=== PATIENT | female | born 1990 | race Caucasian/White ===

== ENCOUNTER 2016-08-24 12:47 | Emergency (ER) | payer BC, OTHER ==
[~2016-08-24] VITALS: Ht 170.2 cm; Wt 76.2 kg
[~2016-08-24 12:47] MED LIST: ANT25HP PO
[2016-08-24 12:58] VITALS: TEMP 36.6; Ht 170.2 cm; Wt 76.2 kg
[2016-08-24] MEDS ORDERED: IBUP-1050 PO (13:23)
[2016-08-24] MEDS ORDERED: PSEU30TA20 PO (13:23)
[2016-08-24] MEDS ORDERED: ACET-1256 PO (13:23)
[2016-08-24] MEDS ORDERED: OXYMETAZOLINE HCL 0.05% NA SPR 15 ML BTL ONE (13:33)
--- NOTE | 2016-08-24 14:27 | EMERGENCY ROOM VISIT NOTE ---
ED Visit Note First contact with patient: 13:26 CHIEF COMPLAINT: Nosebleed HISTORY OF PRESENT ILLNESS: This patient developed sudden onset of a nosebleed which started at 12 noon today.. The bleeding has not stopped with pressure. The patient states that she has had cold symptoms recently and has been blowing her nose a lot. The patient states that appears to be bleeding out of her nostrils but the left much greater than the right. The patient denies any trauma to the nose. The patient denies any prior episodes of nosebleeds. she is not on any blood thinners REVIEW OF SYSTEMS: 6 system review was performed and was negative unless stated otherwise in history of present illness. PMH: The patient is healthy; wisdom teeth removal, anterior cruciate ligament repair SOCIAL HISTORY: Patient lives with her . The patient denies any tobacco use but admits to occasional alcohol use. PHYSICAL EXAM: Vital Signs: Were reviewed Reviewed Nurse's notes. GEN.: 26-year -old white female appears in no acute distress. She has a nasal clamp in place. MENTAL Status The patient is alert, oriented, coherent, and cooperative. NOSE: The nasal clamp was removed. There was a large amount of clotted blood within the left nostril and a small amount of blood within the right nostril. EMERGENCY DEPARTMENT COURSE: Using saline and a cotton swab most of this was removed. I cannot visualize any area of specific active bleeding. Afrin spray was placed in both nostrils. The patient was observed for 30 minutes and there was no recurrent bleeding. The patient was discharged home in stable condition. DIAGNOSIS: Epistaxis DISCHARGE INSTRUCTIONS & TREATMENT: Firm pressure on the nose for 15 minutes if bleeding recurs. May also try the Afrin 1 spray into the affected nostril every 6 hours if needed. If bleeding persists, return to ER. Do not blow the nose for the next 48 hours.. Problem List Medical Problems: (1) Abdominal pain Status: Resolved (2) Abdominal pain Status: Resolved (3) Ovarian cyst, right Status: Resolved Surgical Problems: (1) S/P ACL reconstruction Status: Resolved Current/Historical Medications Scheduled PRN Acetaminophen (Tylenol), 1,000 MG PO UD PRN for Fever Ibuprofen (Advil), 400 MG PO UD PRN for Headache or Pain Pseudoephedrine (Sudafed), 60 MG PO Q12 PRN for cold symptoms Allergies Coded Allergies: Cephalexin (Verified Allergy, Unknown, ., 08/24/16) Clindamycin (Verified Allergy, Unknown, ., 08/24/16) Vital Signs Date Time Temp Pulse Resp B/P Pulse Ox O2 Delivery O2 Flow Rate FiO2 08/24/16 12:58 36.6 90 18 117/76 98 Room Air Departure Information Referrals Irma Barone MD (PCP) Patient Instructions [facility]
[2016-08-24 14:45] VITALS: BP 112/71; PULSE 74; O2SAT 100
== END 2016-08-24 14:46 | disposition home or self-care (01) ==
LOC: C.EDB 12:49 → C.EDD 14:46
DX: R04.0 Epistaxis (principal)

== ENCOUNTER → 2016-08-28 | Outpatient (CLI) | payer BC, OTHER ==
[~2016-08-28] MED LIST changes: +ACET-1256 PO; -ANT25HP PO; +IBUP-1050 PO; +PSEU30TA20 PO
--- NOTE | 2016-08-28 14:52 | EEG Procedure Note ---
EEG Procedure Note Date of Service Aug 28, 2016. Start / End Times Start Time: 8:16 AM End Time: 8:37 AM Referring Physician Irma Cobos MD History This is a 26-year-old female with an episode of syncope. EEG for further evaluation of possible seizure etiology. No home medications reported. Home Medication List Scheduled PRN Acetaminophen (Tylenol), 1,000 MG PO UD PRN for Fever Ibuprofen (Advil), 400 MG PO UD PRN for Headache or Pain Pseudoephedrine (Sudafed), 60 MG PO Q12 PRN for cold symptoms Description This is a 21 electrode EEG with a single channel dedicated to limited EKG. The electrodes were placed in accordance with the International 10-20 system. At the start of the recording the patient was in an awake state. Background was well organized and composed of symmetric mixed alpha and beta frequencies. There was a symmetric well-formed moderate amplitude 9-10 Hz posterior dominant rhythm that was reactive to eye opening and closure. Hyperventilation with good effort produced no abnormalities. Intermittent photic stimulation at various frequencies produced no abnormalities. There was no stage changes or sleep transients. Interpretation This is a normal awake only routine EEG. There was no electrographic seizures or epileptiform discharges. Clinical Correlation A normal EEG does not rule out epilepsy if there is a strong clinical suspicion.
== END | disposition home or self-care (01) ==
LOC: C.NEUR 14:00
PROVIDERS: ATTEND Family Medicine
DX: R55 Syncope and collapse (principal)

== ENCOUNTER → 2016-10-03 | Day surgery (SDC) | payer BC, OTHER ==
[~2016-10-03] VITALS: Ht 170.2 cm; Wt 75.0 kg
[2016-10-03 10:31] VITALS: BP 119/68; PULSE 83; TEMP 36.6; O2SAT 100; Ht 170.2 cm; Wt 75.0 kg
--- NOTE | 2016-10-03 11:40 | History & Physical Bridge Note ---
H&P Re-Evaluation Bridge Note: I have examined the patient, reviewed the History & Physical and in the interval since the performance of the History & Physical I have noted the following changes of clinical significance: No additional episodes of syncope. Recently diagnosed with migraine headaches.
== END | disposition home or self-care (01) ==
LOC: C.CATH 09:35
PROVIDERS: ATTEND Internal Medicine Clinical Cardiac Electrophysiology
DX: R55 Syncope and collapse (principal)

== ENCOUNTER → 2016-12-06 | Outpatient (CLI) | payer BC, OTHER ==
[2016-12-06 16:42] LABS: BASO % 0.4 %; BASO ABS # 0.03 K/uL (0-0.2); COMPLETE YES; EOS % 1.3 %; HEMATOCRIT 44.3 % (37-47); IG% 0.1 %; LYMPH % 37.8 %; LYMPH ABS # 2.91 K/uL (1.2-3.4); MEAN CELL VOLUME 90.4 fL (80-100); MEAN CORPUSCULAR HEMOGLOBIN 29.2 pg (25-34); MEAN CORPUSCULAR HGB CONC 32.3 g/dl (32-36); MEAN PLATELET VOLUME 10.6 fL (7.4-10.4); MONO % 7.7 %; NEUT % 52.7 %; PLATELET COUNT 258 K/uL (130-400)
[2016-12-06 17:00] LABS: PARTIAL THROMBOPLASTIN RATIO 1.2; PROTHROMBIN TIME (PATIENT) 10.7 SECONDS (9.0-12.0)
[2016-12-06 17:34] LABS: POTASSIUM 3.7 mmol/L (3.5-5.1)
== END | disposition home or self-care (01) ==
LOC: C.LABBC 12:22
DX: Z01.818 Encounter for other preprocedural examination (principal)

== ENCOUNTER → 2016-12-20 | Day surgery (SDC) | payer BC, OTHER ==
[2016-12-19 10:12] VITALS: Ht 170.2 cm; Wt 77.3 kg
[~2016-12-20] VITALS: Ht 170.2 cm; Wt 77.3 kg
[~2016-12-20] MED LIST changes: -ACET-1256 PO; +ACETAMINOPHEN/HYDROCODONE ELIX 15 ML/CUP UDP ONE; +ATROPINE SULFATE 0.1 MG/ML 5ML SYR IV PRN; +BACITRACIN/POLYMYXIN B OINT 15 GM TUBE EXT ONE; +DEXAMETHASONE SOD INJ 4 MG/ML VIAL ONE; +EpHEDrine SULFATE INJ 50 MG/ML AMP IV PRN; +EpHEDrine SULFATE INJ 50 MG/ML AMP ONE; +FENTANYL CITRATE INJ 50 MCG/1 ML 2 ML VIAL IV PRN; +FENTANYL CITRATE INJ 50 MCG/1 ML 2 ML VIAL ONE; +FLUMAZENIL 0.1 MG/1 ML 10 ML VIAL IV PRN; +GLYCOPYRROLATE INJ 0.2 MG/ML VIAL ONE; +HYDROCODONE/APAP 2.5MG/108MG ELIX 5 ML UDP PO PRN; -IBUP-1050 PO; +KETAMINE HCL INJ 50 MG/ML 10 ML VIAL ONE; +LABETALOL HCL IV 5 MG/ML 20ML IV PRN; +LACTATED RINGER'S 1000ML 1,000 ML IV SCH; +LIDOCAINE 2% JELLY 5 ML TUBE EXT ONE; +LIDOCAINE 3.5% OPH GEL PER APPLICATION CHARGE ONE; +LIDOCAINE HCL 2% 2 ML VIAL (20MG/ML) ONE; +MIDAZOLAM HCL 1 MG/ML 2ML VIAL ONE; +NALOXONE HCL 0.4 MG/1 ML VIAL/CARP IV PRN; +NEOSTIGMINE METHYLSULFATE 5 MG/5 ML SYR ONE; +ONDANSETRON INJ 2 MG/ML 2 ML VIAL IV PRN; +ONDANSETRON INJ 2 MG/ML 2 ML VIAL ONE; +PHENYLEPHRINE HCL INJ 10 MG/ML VIAL ONE; +PROMETHAZINE HCL INJ 12.5 MG in SODIUM CHLORIDE 0.9% 50ML 50 ML IV PRN; +PROPOFOL IV EMULSION 10 MG/ML 20 ML VIAL IV ONE; -PSEU30TA20 PO; +ROCURONIUM BROMIDE 10 MG/ML 5 ML VIAL ONE; +SUCCINYLCHOLINE CHLORIDE 20 MG/ML 10 ML VIAL IV ONE
--- NOTE | 2016-12-20 09:18 | History & Physical Bridge - [place] ---
H&P Re-Evaluation Bridge Note: I have examined the patient, reviewed the History & Physical and in the interval since the performance of the History & Physical I have noted the following changes of clinical significance: No changes noted
--- NOTE | 2016-12-20 10:38 | [facility] Operative Report ---
Operative Report Operative Date Dec 20, 2016. Pre-Operative Diagnosis Chronic Tonsillitis Post-Operative Diagnosis Same Procedure(s) Performed Tonsillectomy Surgeon Dr Rasheed Civil Technician Surgeon(s) None Estimated Blood Loss 5ML Findings NO ADENOIDS; 2+ CRYPTIC TONSILS WITH LEFT TONSILLITH Specimens A: Right Tonsil B: Left Tonsil I attest to the content of the Intraoperative Record and any orders documented therein. Any exceptions are noted below.
--- NOTE | 2016-12-20 10:39 | Discharge Instructions ---
Discharge Instructions Date of Service Dec 20, 2016. Admission Reason for Admission: Chronic Tonsillitis Discharge Discharge Diagnosis / Problem: SAME Discharge Goals Goal(s): Therapeutic intervention Activity Recommendations Activity Limitations: as noted below LIGHT ACTIVITY FOR 2WEEKS; SOFT DIET FOR 2WEEKS; NO DRIVING WHILE ON LORTAB . Current Hospital Diet Patient's current hospital diet: Full Liquid Diet Discharge Diet Recommended Diet: Full Liquid Diet Diet Texture: Mechanical Soft (ground) Procedures Procedures Performed: Tonsillectomy Pending Studies Studies pending at discharge: no Medical Emergencies . Who to Call and When: Medical Emergencies: If at any time you feel your situation is an emergency, please call 911 immediately. . Non-Emergent Contact Non-Emergency issues call your: Surgeon . . "Provider Documentation" section prepared by Kai Rasheed. . VTE Core Measure Inpt VTE Proph given/why not?: SCD's
--- NOTE | 2016-12-20 10:57 | OPERATIVE REPORT ---
DATE OF OPERATION: 12/20/2016 PREOPERATIVE DIAGNOSIS: Chronic tonsillitis. POSTOPERATIVE DIAGNOSIS: Chronic tonsillitis. PROCEDURE: Bilateral tonsillectomy. SURGEON: Dr. Rasheed. ANESTHESIA: General endotracheal. ESTIMATED BLOOD LOSS: 5 mL FINDINGS: 1. Normal palate. 2. No adenoid tissue. 3. 2+ cryptic tonsils with evidence of tonsilliths on the left hand side. SPECIMENS: Right and left tonsil sent separately for permanent pathologic assessment. COMPLICATIONS: None. INDICATIONS FOR THE PROCEDURE: The patient is a 26-year-old female with the above-mentioned history, who presents for the above-mentioned procedure on an outpatient elective basis. DETAILS OF PROCEDURE: After informed consent had been obtained from the patient, the patient was wheeled to the operating room and placed on the operating room table in supine position. Monitors were placed after induction of general endotracheal anesthesia, the table was turned 90 degrees, and the patient's head and neck were gently extended. Antibiotic ointment was applied to the lips and a mouth gag was carefully inserted, opened, stabilized on a roll of towels. The palate was inspected, this was found to be normal. A catheter was then inserted through the right nasal cavity and this was used to elevate the soft palate and uvula. Laryngeal mirror was used to inspect the nasopharynx and the intraoperative findings were of no evidence of adenoid tissue. An Allis clamp was then used to grasp the right tonsil superior pole and Bovie electrocautery was used to remove the tonsil in the capsular plane with care to preserve the underlying mucosa and musculature of the anterior and posterior tonsillar pillars. The left tonsil was then removed in a similar fashion. Intraoperative findings were of 2+ tonsils bilaterally with evidence of tonsilliths on the left hand side. The tonsils were sent separately for permanent pathologic assessment. The mouth gag was then released for 1 minute. This was reopened and hemostasis was confirmed. 2% lidocaine jelly was placed in the bilateral tonsillar fossae for added anesthetic effect. This marked the end of the case. The patient tolerated the procedure well, there were no apparent complications. The patient was extubated and transferred to recovery room in stable condition. I attest to the content of the Intraoperative Record and any orders documented therein. Any exception s are noted below.
[2016-12-20 11:35] VITALS: TEMP 36.6
[2016-12-20 12:12] VITALS: BP 113/74; PULSE 87; O2SAT 99
--- NOTE | 2016-12-20 12:14 | Anesthesia Progress Nt - [facility] ---
Anesthesia Post Op Note Date & Time Dec 20, 2016 at 12:13 Vital Signs Pain Intensity: 4 Vital Signs Past 12 Hours Date Time Temp Pulse Resp B/P (MAP) Pulse Ox O2 Delivery O2 Flow Rate FiO2 12/20/16 11:35 36.6 73 18 117/77 (90) 100 Room Air 12/20/16 11:28 81 14 100 12/20/16 11:28 80 14 12/20/16 11:27 126/75 12/20/16 11:23 76 13 100 12/20/16 11:23 77 13 12/20/16 11:22 123/80 12/20/16 11:18 83 14 12/20/16 11:18 82 14 100 12/20/16 11:17 128/79 12/20/16 11:16 36.7 100 Room Air 12/20/16 11:13 95 15 100 12/20/16 11:13 97 15 12/20/16 11:12 127/78 12/20/16 11:12 127/78 12/20/16 11:10 90 10 100 12/20/16 11:10 89 10 12/20/16 11:10 89 10 12/20/16 11:10 90 10 100 12/20/16 11:07 143/73 12/20/16 11:07 143/73 12/20/16 11:05 87 6 12/20/16 11:05 86 6 100 12/20/16 11:05 87 6 12/20/16 11:05 86 6 100 12/20/16 11:02 134/74 12/20/16 11:02 134/74 12/20/16 11:00 133 17 12/20/16 11:00 133 17 100 12/20/16 11:00 133 17 12/20/16 11:00 133 17 100 12/20/16 10:57 119/65 12/20/16 10:57 119/65 12/20/16 10:55 75 12 96 12/20/16 10:55 74 12 12/20/16 10:55 74 12 12/20/16 10:55 75 12 96 12/20/16 10:52 131/70 12/20/16 10:52 131/70 12/20/16 10:50 36.5 100 12 131/70 100 Humidified Oxygen 6 Mask 12/20/16 09:12 36.5 83 18 131/77 (95) 100 Room Air Notes Mental Status: alert / awake / arousable, participated in evaluation Pt Amnestic to Procedure: Yes Nausea / Vomiting: adequately controlled Pain: adequately controlled Airway Patency, RR, SpO2: stable & adequate BP & HR: stable & adequate Hydration State: stable & adequate Anesthetic Complications: no major complications apparent
== END | disposition home or self-care (01) ==
LOC: X.SURG 08:55
DX: J03.90 Acute tonsillitis, unspecified (principal); J35.01 Chronic tonsillitis; Z82.49 Family history of ischemic heart disease and other diseases of the circulatory system; Z80.7 Family history of other malignant neoplasms of lymphoid, hematopoietic and related tissues

== ENCOUNTER 2017-09-17 12:08 | Emergency (ER) | payer OTHER ==
[~2017-09-17] VITALS: Ht 170.2 cm; Wt 83.6 kg
[2017-09-17 12:12] VITALS: BP 120/78; PULSE 73; TEMP 36.7; O2SAT 98; Ht 170.2 cm; Wt 83.6 kg
[2017-09-17] MEDS ORDERED: MULT-506 PO (12:22)
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
== END 2017-09-17 13:30 | disposition home or self-care (01) ==
LOC: C.EDB 12:10 → MERGE 12:10 → C.EDD 13:30
DX: Z04.1 Encounter for examination and observation following transport accident (principal); V47.5XXA Car driver injured in collision with fixed or stationary object in traffic accident, initial encounter; Y92.410 Unspecified street and highway as the place of occurrence of the external cause

== ENCOUNTER → 2017-12-01 | Outpatient (CLI) | payer OTHER ==
[~2017-12-01] MED LIST changes: -ACETAMINOPHEN/HYDROCODONE ELIX 15 ML/CUP UDP ONE; -ATROPINE SULFATE 0.1 MG/ML 5ML SYR IV PRN; -BACITRACIN/POLYMYXIN B OINT 15 GM TUBE EXT ONE; -DEXAMETHASONE SOD INJ 4 MG/ML VIAL ONE; -EpHEDrine SULFATE INJ 50 MG/ML AMP IV PRN; -EpHEDrine SULFATE INJ 50 MG/ML AMP ONE; -FENTANYL CITRATE INJ 50 MCG/1 ML 2 ML VIAL IV PRN; -FENTANYL CITRATE INJ 50 MCG/1 ML 2 ML VIAL ONE; -FLUMAZENIL 0.1 MG/1 ML 10 ML VIAL IV PRN; -GLYCOPYRROLATE INJ 0.2 MG/ML VIAL ONE; -HYDROCODONE/APAP 2.5MG/108MG ELIX 5 ML UDP PO PRN; -KETAMINE HCL INJ 50 MG/ML 10 ML VIAL ONE; -LABETALOL HCL IV 5 MG/ML 20ML IV PRN; -LACTATED RINGER'S 1000ML 1,000 ML IV SCH; -LIDOCAINE 2% JELLY 5 ML TUBE EXT ONE; -LIDOCAINE 3.5% OPH GEL PER APPLICATION CHARGE ONE; -LIDOCAINE HCL 2% 2 ML VIAL (20MG/ML) ONE; -MIDAZOLAM HCL 1 MG/ML 2ML VIAL ONE; +MULT-506 PO; -NALOXONE HCL 0.4 MG/1 ML VIAL/CARP IV PRN; -NEOSTIGMINE METHYLSULFATE 5 MG/5 ML SYR ONE; -ONDANSETRON INJ 2 MG/ML 2 ML VIAL IV PRN; -ONDANSETRON INJ 2 MG/ML 2 ML VIAL ONE; -PHENYLEPHRINE HCL INJ 10 MG/ML VIAL ONE; -PROMETHAZINE HCL INJ 12.5 MG in SODIUM CHLORIDE 0.9% 50ML 50 ML IV PRN; -PROPOFOL IV EMULSION 10 MG/ML 20 ML VIAL IV ONE; -ROCURONIUM BROMIDE 10 MG/ML 5 ML VIAL ONE; -SUCCINYLCHOLINE CHLORIDE 20 MG/ML 10 ML VIAL IV ONE
--- NOTE | 2017-12-01 08:15 | DIAGNOSTIC IMAGING REPORT ---
ABDOMINAL ULTRASOUND, RIGHT UPPER QUADRANT HISTORY: INTERMITTENT RT UPPER QUAD ABD PAIN. COMPARISON: Abdominal ultrasound 03/21/2014. FINDINGS: Pancreas: The pancreas demonstrates a normal echotexture. Liver: Unremarkable. Gallbladder: No gallbladder wall thickening. No gallstones. CBD: 4 mm. Right kidney: No hydronephrosis. IMPRESSION: No significant abnormality identified within the right upper quadrant. Electronically signed by: Luis Capone M.D. 12/01/2017 8:14 AM Dictated Date/Time: 12/01/2017 8:13 AM
== END | disposition home or self-care (01) ==
LOC: C.ULTR 07:28
PROVIDERS: ATTEND Internal Medicine
DX: R10.11 Right upper quadrant pain (principal)

== ENCOUNTER 2020-03-24 12:17 | Inpatient (IN) ==
[2020-03-24] MEDS ORDERED: OXYTOCIN 30 UNITS/500 ML BAG IV PRN ×2 (12:45)
[2020-03-24] MEDS ORDERED: PENICILLIN G POTASSIUM 6 MU in DEXTROSE 5% 250 ML IV STA (12:45)
--- NOTE | 2020-03-24 12:56 | History & Physical Report ---
Date of Service March 24, 2020 Assessment & Plan (1) Normal labor and delivery: Likely in early labor despite limited cervical dilation given the intensity of her contractions. Past due date. status Cat 1 currently. BP noted but only one value and patient in pain, so not yet diagnostic of gHTN. Admit to L&D. Pain management on request. A gotti balloon was placed with permission of patient and FOB to augment the labor process / provide cervical ripening. (2) Carrier of group B Streptococcus: PCN ordered and to begin. Pitocin ordered but only to allow profiling of the med from Pharmacy; RN instructed not to infuse yet. History of Present Illness Primary Care Provider: Irma Barone MD 29yo sent from office at 40w2d for nonreactive BPP, painful contractions Q2min without significant cervical dilation, and BP is also noted to be 140/82 on arrival. No perez, RUQ pain or vision changes. Good FM, no LOF, no VB. Pro bably in early labor given contraction frequency and pain. Upon discussion with patient, she and FOB wish to have augmentation of labor at this time, and she is considering pain management options. She doesn't want anything just yet but thinks it won't be long. Allergies Allergy/AdvReac Type Severity Reaction Status Date / Time cephalexin Allergy Mild FACIAL Verified 03/22/20 12:53 SWELLING/HIVES clindamycin Allergy Mild HIVES Verified 03/22/20 12:53 Home Medications Home Medications Medication Instructions Recorded Confirmed Type ferrous sulfate 325 mg PO DAILY 03/24/20 03/24/20 History prenat.vits,nasima,nha-eqkg-sfnca 1 tab PO DAILY 03/24/20 03/24/20 History [ Vitamin] Patient History Medical History (Updated 03/24/20 @ 12:53 by Kristin Anderson MD) History of chicken pox Ovarian abscess Surgical History History of repair of ACL right side History of tonsillectomy History of wisdom tooth extraction S/P ACL repair S/P tonsillectomy S/P wisdom tooth extraction Family History Father Hypertension Hypotension Grandfather Hypotension Family history of malignant neoplasm Hodgkin's lymphoma Grandmother Hypotension Mother Hypertension Hyperlipidemia Family history of diabetes mellitus Thyroid disease Brother Hypertension Brother No problems noted. 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[employer] Feels Safe at Home: Yes Diet Comment: no specific diet Dental Care, Regularly: Yes Physical Activity Frequency: Does not Exercise Seatbelt Use: always Do you think of yourself as: straight/heterosexual Review of Systems All systems reviewed & are unremarkable except as noted in HPI & below Physical Exam Constitutional: WD/WN, vitals as above + in distress Eyes: PERRL, conjunctivae normal, anicteric sclerae ENMT: external ear and nose normal, oropharynx normal Neck: supple Respiratory: normal respiratory effort and able to speak in complete sentences; no respiratory distress Cardiovascular: Rate/Rhythm: regular rate and regular rhythm Extremities: + pedal edema Gastrointestinal (Abdomen): Gravid / AGA, nontender Musculoskeletal: no cyanosis or clubbing, extremities motor strength 5/5 Skin: no rashes, warm and dry Neurologic: patellar DTR's 2+ bilat, sensation intact Psychiatric: A+Ox3, euthymic affect Genitourinary: Speculum/Bimanual Exam: no vaginal lesions, no vaginal bleeding and uterus nontender OB Exam Abdomen: + vertex, + estimated weight (7) and + regular contractions (Q2-3) Manual OB Exam: + cervical dilation 1 cm, + cervical effacement 10%, + station high and + amniotic fluid (No leaking evident) OB Exam Monitor Tracing: + external FHT monitor used, + external uterine monitor used and + category I Gotti passed through cervix and inflated with 30cc sterile water. Lymphatic: no cervical or axillary lymphadenopathy Results & Data ([facility]) Vital Signs (Past 12 Hours) Vital Signs Pulse BP 03/24/20 12:22 94 H 140/82 Code Status & VTE Plan VTE Prophylaxis Plan VTE Prophylaxis will be ordered: Yes Coding Level of Care Code None Diagnoses Normal labor and delivery O80 Carrier of group B Streptococcus Z22.330
[2020-03-24 13:08] LABS: Hematocrit (blood only) 39.9 % (37-47); Hemoglobin 13.3 g/dL (12.0-16.0); Mean Corpuscular Volume 86.9 fL (80-100); Mean Platelet Volume 11.4 fL (7.4-10.4); Platelet Count 249 K/uL (130-400); RDW Standard Deviation 47.8 fL (36.4-46.3); Red Blood Count 4.59 M/uL (4.2-5.4); White Blood Count 14.61 K/uL (4.8-10.8)
[2020-03-24 13:16] LABS: Mean Corpuscular Hgb Conc 33.3 g/dL (32-36)
[2020-03-24] MEDS: LACTATED RINGER'S 1,000 ML IV PRN ×2 (13:42→22:02)
[2020-03-24] MEDS: PENICILLIN G POTASSIUM 3 MU in DEXTROSE 5% 100 ML IV PRN ×2 (17:54→22:01)
[2020-03-24] MEDS ORDERED: BUPIVACAINE 0.25% 30 ML VIAL ONE (18:12)
[2020-03-24] MEDS ORDERED: ePHEDrine sulfate 50 MG/ML AMP ONE (18:12)
[2020-03-24] MEDS ORDERED: fentaNYL citrate 100 MCG/2 ML VIAL ONE (18:13)
[2020-03-24] MEDS ORDERED: fentaNYL 2MCG/ML ROPIV 1.25MG/ML 100 ML BAG EPI ONE (18:13)
[2020-03-24] MEDS ORDERED: NALOXONE HCL 1 MG in SODIUM CHLORIDE 0.9% 1000ML 1,000 ML IV PRN (18:36)
[2020-03-24] MEDS ORDERED: DiphenhydrAMINE HCL 50 MG/ML VIAL IV PRN (18:36)
[2020-03-24] MEDS ORDERED: ONDANSETRON INJ 2 MG/ML 2 ML VIAL IV PRN (18:36)
[2020-03-24] MEDS ORDERED: NALOXONE HCL 0.4 MG/1 ML VIAL/CARP IV PRN (18:36)
[2020-03-24] MEDS ORDERED: fentaNYL 2MCG/ML ROPIV 1.25MG/ML 100 ML BAG EPI PRN (18:36)
[2020-03-24] MEDS ORDERED: ePHEDrine sulfate 50 MG/ML AMP IV PRN (18:36)
--- NOTE | 2020-03-24 18:41 | Anesthesiology Consultation ---
Date of Service March 24, 2020 Assessment & Plan (1) Encounter for pre-operative examination: Chart Review Chart Review: Patient NOT seen in Pre Admission Testing and Acceptable Risk for Labor Epidural Consults Requested none History Height/Weight Height: 5 ft 7 in Weight: 119.748 kg Allergies Allergy/AdvReac Type Severity Reaction Status Date / Time cephalexin Allergy Mild FACIAL Verified 03/22/20 12:53 SWELLING/HIVES clindamycin Allergy Mild HIVES Verified 03/22/20 12:53 Medications Home Medications Medication Instructions Recorded Confirmed Last Taken ferrous sulfate 325 mg PO DAILY 03/24/20 03/24/20 03/23/20 08:00 prenat.vits,nasima,jhw-gbhx-vlkel 1 tab PO DAILY 03/24/20 03/24/20 03/23/20 08:00 [ Vitamin] Active Medications Generic Name Dose Route Start Last Admin Trade Name Freq PRN Reason Stop Dose Admin Lactated Ringer's 1,000 mls @ 125 mls/hr 03/24/20 12:45 03/24/20 17:54 Lr IV 03/26/20 12:44 999 mls/hr .Q8H PRN Infusion L&D Protocol Protocol Penicillin G Potassium 3 mu/ 106 mls @ 100 mls/hr 03/24/20 12:45 03/24/20 17 :54 Dextrose IV 04/03/20 12:44 100 mls/hr Q4H PRN Administration Give until delivery Past Medical History Medical History History of chicken pox Ovarian abscess Exercise / Class Metabolic Activity II 4-5 Yardwork/Stairs/Walk up hill Past Family History Family History Father Hypertension Hypotension Grandfather Hypotension Family history of malignant neoplasm Hodgkin's lymphoma Grandmother Hypotension Mother Hypertension Hyperlipidemia Family history of diabetes mellitus Thyroid disease Brother Hypertension Brother No problems noted. Family/Other Sturge-Caldwell syndrome Grandfather (Maternal) Colorectal cancer Past Surgical History Surgical History History of repair of ACL right side History of tonsillectomy History of wisdom tooth extraction S/P ACL repair S/P tonsillectomy S/P wisdom tooth extraction Past Anesthesia History No Hx of Anesthesia Complications and No Family Hx of Anesthesia Complications History of PONV No Hx of PONV and No Hx of Motion Sickness Social History Smoking Status: Never smoker Do You Dip or Chew Tobacco: No Hx Alcohol Use: No Hx Substance Use: No Physical Exam Vital Signs Last Vital Signs Temp 36.5 C 03/24/20 14:09 Pulse 113 H 03/24/20 18:36 Resp 20 03/24/20 14:09 BP 165/77 H 03/24/20 18:27 Pulse Ox 100 03/24/20 18:36 Testing Laboratory Results 03/24/20 12:56
[2020-03-25] MEDS: PENICILLIN G POTASSIUM 3 MU in DEXTROSE 5% 100 ML IV PRN (01:50)
--- NOTE | 2020-03-25 04:16 | Delivery Summary ---
Vaginal Delivery Summary Date of Service March 25, 2020 Vaginal Delivery Summary DIAGNOSES: 1. Renteria intrauterine at 40w2d gestation. 2. Spontaneous onset of labor, augmented. 3. Group B Streptococcus Pos. PROCEDURE: Spontaneous vaginal delivery and repair of second degree laceration. SURGEON: Kristin Anderson MD. SPECIAL AGENT SECRET SERVICE: None. ESTIMATED BLOOD LOSS: 300 mL. COMPLICATIONS: None. PLACENTA: Spontaneous and intact with a 3-vessel cord. DISPOSITION: Stable to labor and delivery. DESCRIPTION: The patient pushed well and brought the head to in MYNOR position. The infant's head was allowed to deliver with contraction force and no further active pushing, with the perineum protected during this time. The shoulders delivered easily with a maternal pushing effort. There was a double nuchal cord, reduced at the perineum. The left shoulder was anterior. The shoulders and body delivered without any difficulty, and the infant was placed on the maternal abdomen. It was vigorous and moving all extremities, and making respiratory efforts, but thick meconium and staining of baby and cord were noted. The cord was doubly clamped by the MD and then cut by the FOB. The placenta delivered spontaneously and was noted to be intact and with a 3VC. The cervix, vagina and perineum were examined and were found to have a second degree, which was repaired in the usual manner with vicryl including a crown suture to rebuild the perineal body. The fundus was firm and lochia minimal immediately after delivery[place] [facility] [place] Vaginal Delivery Codes: 49273 global code for the antepartum, delivery, and post-
[2020-03-25] MEDS ORDERED: HYDROCORTISONE ACETATE 25 MG SUPP PR PRN (05:36)
[2020-03-25] MEDS ORDERED: BENZOCAINE 20% AER SPR 82.5 GM CAN EXT PRN (05:36)
[2020-03-25] MEDS ORDERED: ACETAMINOPHEN 325 MG TAB PO PRN (05:36)
[2020-03-25] MEDS ORDERED: SUPERCREAM 0.870% 15 GM JAR EXT PRN (05:36)
[2020-03-25] MEDS ORDERED: LACTATED RINGER'S 1,000 ML IV SCH (05:36)
[2020-03-25] MEDS ORDERED: OXYCODONE/ACETAMINOPHEN 5mg/325mg TAB PO PRN (05:36)
[2020-03-25] MEDS ORDERED: OXYTOCIN 30 UNITS/500 ML BAG IV PRN (05:36)
[2020-03-25] MEDS ORDERED: DIPHTHERIA/TETANUS/PERTUSSIS 0.5 ML SYR/VIAL IM ONE (05:36)
[2020-03-25] MEDS ORDERED: IBUPROFEN 600 MG TAB PO PRN (05:36)
--- NOTE | 2020-03-25 05:56 | Anesthesia Procedure Note ---
Date of Service March 25, 2020 Anesthesia Post Epidural Note Vital Signs Vital Signs: Temp Pulse Resp BP Pulse Ox 36.9 C 109 H 18 143/79 H 96 03/25/20 04:20 03/25/20 05:53 03/25/20 05:20 03/25/20 05:53 03/25/20 04:11 Notes Mental Status: alert / awake / arousable and participated in evaluation Patient Amnestic to Procedure: No Nausea / Vomiting: adequately controlled Pain: adequately controlled Airway Patency, RR, SpO2: stable & adequate BP & HR: stable & adequate Hydration State: stable & adequate Neuraxial Anesthesia: was administered and sensory block is resolving Anesthetic Complications: no major complications apparent and Pt Satisfied with anesthetic care Epidural: Removed without complications and With tip intact
[2020-03-25] MEDS ORDERED: DOCUSATE SODIUM 100 MG CAP PO SCH (08:00)
[2020-03-25] MEDS ORDERED: PRENATAL VITAMIN 1 TAB PO SCH (08:00)
--- NOTE | 2020-03-25 10:07 | Obstetrical Progress Note ---
Date of Service March 25, 2020 Assessment & Plan Admission and Anticipated Discharge Date Admission Date: March 24, 2020 Subjective Patient baby is being transferred to [facility] N[facility] for care. Patient requesting early discharge to be with baby. She is noted to have mild range BPs post . Discussed PIH precautions and bleeding precautions. Denying PIH symptoms and bleeding is minimal. Discussed seeking care at [facility] ED if any concerns arise. Results & Data ([facility]) Vital Signs (Past 12 Hours) Vital Signs Temp Pulse Pulse Resp BP BP Pulse Ox 03/25/20 07:20 36.6 C 114 H 18 146/79 H 03/25/20 06:21 123 H 151/88 H 03/25/20 06:20 18 03/25/20 06:08 114 H 135/79 03/25/20 05:53 109 H 143/79 H 03/25/20 05:50 18 03/25/20 05:38 109 H 139/73 03/25/20 05:23 114 H 136/72 03/25/20 05:20 18 03/25/20 05:08 111 H 134/68 03/25/20 05:05 18 03/25/20 04:53 107 H 134/70 03/25/20 04:50 18 03/25/20 04:38 113 H 134/64 03/25/20 04:35 18 03/25/20 04:23 117 H 139/66 03/25/20 04:20 36.9 C 18 03/25/20 04:17 122 H 130/61 03/25/20 04:11 125 H 96 03/25/20 04:06 124 H 96 03/25/20 04:01 123 H 97 03/25/20 03:56 122 H 96 03/25/20 03:51 153 H 96 03/25/20 03:46 133 H 97 03/25/20 03:41 137 H 97 03/25/20 03:38 156/97 H 03/25/20 03:37 137 H 90 03/25/20 03:36 141 H 96 03/25/20 03:31 142 H 100 03/25/20 03:29 147 H 92 03/25/20 03:26 136 H 99 03/25/20 03:21 122 H 150/70 H 96 03/25/20 03:16 139 H 96 03/25/20 03:14 131 H 93 03/25/20 03:11 134 H 96 03/25/20 03:09 127 H 166/89 H 03/25/20 03:06 137 H 97 03/25/20 03:01 118 H 99 03/25/20 02:56 122 H 99 03/25/20 02:53 117 H 136/81 03/25/20 02:51 121 H 98 03/25/20 02:46 119 H 99 03/25/20 02:41 125 H 99 03/25/20 02:38 120 H 140/78 03/25/20 02:36 119 H 98 03/25/20 02:31 124 H 99 03/25/20 02:26 114 H 98 03/25/20 02:23 112 H 140/79 03/25/20 02:21 114 H 97 03/25/20 02:16 114 H 98 03/25/20 02:15 110 H 137/72 03/25/20 02:11 115 H 100 03/25/20 02:06 117 H 99 03/25/20 02:01 115 H 99 03/25/20 01:59 18 03/25/20 01:56 116 H 98 03/25/20 01:55 115 H 162/82 H 03/25/20 01:51 120 H 99 03/25/20 01:46 124 H 96 03/25/20 01:41 112 H 98 03/25/20 01:38 115 H 133/78 03/25/20 01:36 112 H 94 03/25/20 01:31 113 H 96 03/25/20 01:30 37.0 C 18 03/25/20 01:26 118 H 99 03/25/20 01:25 111 H 137/79 03/25/20 01:21 132 H 97 03/25/20 01:16 106 H 97 03/25/20 01:11 103 H 97 03/25/20 01:09 109 H 141/76 H 03/25/20 01:06 109 H 96 03/25/20 01:01 110 H 97 03/25/20 00:56 113 H 97 03/25/20 00:51 114 H 99 03/25/20 00:46 109 H 100 03/25/20 00:41 103 H 97 03/25/20 00:38 100 H 121/64 03/25/20 00:36 102 H 99 03/25/20 00:31 107 H 18 97 03/25/20 00:26 104 H 97 03/25/20 00:24 102 H 118/64 03/25/20 00:21 108 H 96 03/25/20 00:16 106 H 97 03/25/20 00:11 118 H 95 03/25/20 00:08 109 H 128/72 03/25/20 00:06 112 H 96 03/25/20 00:01 112 H 94 03/24/20 23:56 114 H 95 03/24/20 23:53 110 H 122/72 03/24/20 23:51 108 H 97 03/24/20 23:47 110 H 94 03/24/20 23:46 110 H 96 03/24/20 23:41 112 H 96 03/24/20 23:38 108 H 117/71 03/24/20 23:36 106 H 98 03/24/20 23:35 36.9 C 03/24/20 23:31 115 H 98 03/24/20 23:26 105 H 96 03/24/20 23:23 100 H 132/72 03/24/20 23:21 103 H 96 03/24/20 23:20 111 H 94 03/24/20 23:16 100 H 96 03/24/20 23:11 102 H 96 03/24/20 23:08 106 H 126/68 03/24/20 23:06 110 H 97 03/24/20 23:01 107 H 18 96 03/24/20 22:56 100 H 95 03/24/20 22:53 106 H 125/65 03/24/20 22:51 101 H 96 03/24/20 22:46 99 H 97 03/24/20 22:41 104 H 96 03/24/20 22:39 99 H 129/70 03/24/20 22:36 110 H 95 03/24/20 22:31 107 H 18 96 03/24/20 22:26 108 H 96 03/24/20 22:23 98 H 133/73 03/24/20 22:21 105 H 96 03/24/20 22:16 108 H 96 03/24/20 22:11 111 H 97 03/24/20 22:08 105 H 138/68 03/24/20 22:06 105 H 95 PG Care Time/CCT Total # of Minutes Spent Total Time Spent with Patient: Total time spent is greater than 50% in coordination of care (as documented) at patient's floor/unit and/or counseling patient: Coding Level of Care Code None
== END 2020-03-25 11:10 | disposition home or self-care (01) | DRG 807 ==
LOC: OPB 12:17 → 4S1 12:18 → 4S2 03-25 06:48